=== PATIENT | female | born 1945 | race Caucasian/White ===

== ENCOUNTER 2025-07-25 22:47 | Emergency (ER) | payer MEDICARE, OTHER, SELFPAY ==
[2025-07-25 22:48] VITALS: BP 162/81; PULSE 84; RESP 14; TEMP 36.6; O2SAT 97
[2025-07-25 23:08] VITALS: BMI 29.7
--- NOTE | 2025-07-25 23:17 | CT_ITS ---
PROCEDURE: CT/Brain/Head without Contrast
--- NOTE | 2025-07-25 23:17 | CT_ITS ---
PROCEDURE: CT/CT Chest, Abd, Pel w/Contrast
[2025-07-26 00:03] LABS: Hematocrit 39.1 % (37-47); Hemoglobin 13.4 g/dL (12.0-15.0); Immature Granulocytes Count 0.100 X10^3/uL (0.0-0.0); Mean Corp Hgb Conc 34.3 g/dL (32-36); Mean Corpuscular Volume 90.7 fL (81-99); Mean Platelet Vol. 9.7 fl (6.2-12.0); NRBC Flagged by Analyzer 0 % (0-5); Platelet Count 185 K/mm3 (150-450); RBC Distribution Width CV 12.8 % (11.6-14.6); RBC Distribution Width SD 42.5 fl (35.1-43.9); Red Blood Count 4.31 M/mm3 (4.2-5.4); White Blood Count 6.5 K/mm3 (4.4-11.0)
[2025-07-26 00:05] LABS: AST(SGOT) 17 U/L (<=31); Alanine Aminotransfer ALT/SGPT 10 U/L (<=34); Albumin, Serum 3.7 g/dL (3.4-4.8); Alkaline Phosphatase 82 U/L (35-104); Anion Gap 8 (5-15); BUN 15 mg/dL (4-19); BUN/Creat Ratio 24.5 RATIO (10-20); Calcium,Total 9.2 mg/dL (7.6-11.0); Carbon Dioxide 26.2 mmol/L (21.0-32.0); Chloride 105 mmol/L (98-108); Estimated Creatinine Clearance 50.93 ml/min (50-250); Globulin 2.4 g/dL (2.2-4.2); Glucose 127 mg/dL (70-99); Potassium 3.4 mmol/L (3.3-5.1)
[2025-07-26 00:48] VITALS: BP 151/92; PULSE 74; RESP 18; O2SAT 95
[2025-07-26 01:06] LABS: Color, Urine Straw (Yellow); Glucose, Dipstick Normal (Normal); Ketone-Dipstick Negative (Negative); Leukocyte Esterase-Dipstick 25 /ul (Negative); Nitrite-Dipstick Negative (Negative); Occult Blood-Urine 10 /ul (Negative); Protein-Dipstick Negative (Negative); Specific Gravity, Urine 1.005 (1.002-1.030); Urine Bilirubin Dipstick Negative (Negative)
[2025-07-26 02:00] VITALS: BP 132/72; PULSE 74; RESP 16; O2SAT 97
--- NOTE | 2025-07-26 03:01 | ED.VIS.FALL ---
HPI HPI - Fall History of Present Illness Chief Complaint: Fall Narrative Narrative: Patient was seen and examined after presenting to ED for mechanical fall she was doing something with bedsheets ended up tripping over it landing directly on her left arm into her left rib cage adamant that she did not hit her head or lose consciousness she is not on anticoagulation just endorses some chest wall pain no shortness of breath no belly pain. PFSH PFSH Medical History Arthritis Lactose intolerance Osteoporosis Fibromyalgia Breast cancer Home Medications ?Medication ?Instructions ?Recorded ?Last Taken ?Type tramadol 50 mg tablet 50 mg PO Q8H PRN pain 3 days #10 07/26/25 Unknown Rx tabs Allergy/AdvReac Type Severity Reaction Status Date / Time adhesive tape (tape) Allergy Mild Rash Verified 07/25/25 22:49 codeine Allergy Mild HEADACHE Verified 07/25/25 22:49 gluten Allergy Mild Diarrhea Verified 07/25/25 22:49 lactose (lactose intolerant) Allergy Mild Diarrhea Verified 07/25/25 22:49 Family History no significant family his Surgical History Hx of total knee replacement Social History Smoking Status: Never smoker ROS ROS ED ROS Narrative Pertinent Positives: Mechanical fall left-sided chest wall pain Pertinent Negatives: Head injury loss of consciousness bleeding disorders use of anticoagulation shortness of breath numbness tingling vomiting The remainder of review of systems negative unless otherwise stated in the HPI above. Systems reviewed including constitutional, psychiatric, cardiovascular, respiratory, integument, HENT, gastrointestinal. EXAM Physical Exam Narrative Exam Narrative: Patient has an intact airway with bilateral breath sounds her blood pressure is appropriate as she has intact MSPs in her extremities with 2+ radials and DPs bilaterally. Her GCS is 15. She is appropriately exposed. Normocephalic atraumatic pupils equal round reactive to light EOMI. Midface is stable no dental malocclusion nontender cervical thoracic and lumbar spine without any step-off deformities abdomen is soft nontender nondistended pelvis is stable she is still able to move all of her extremities she does have tenderness overlying the left side of her chest wall on the lateral aspect of it Const Vital Signs: 07/25/25 22:48 07/25/25 23:08 07/26/25 00:48 Temperature 97.8 F Temperature Source Temporal Pulse Rate 84 74 Respiratory Rate 14 18 Respiratory Effort Normal Respiratory Depth Normal Respiratory Pattern Normal Blood Pressure 162/81 H 151/92 H Blood Pressure Mean 108 111 Pulse Ox 97 95 Oxygen Delivery Method Room Air Room Air Room Air 07/26/25 02:00 Temperature Temperature Source Pulse Rate 74 Respiratory Rate 16 Respiratory Effort Respiratory Depth Respiratory Pattern Blood Pressure 132/72 H Blood Pressure Mean 92 Pulse Ox 97 Oxygen Delivery Method Room Air MDM MDM MDM Narrative Medical decision making narrative: Nursing notes, triage notes, available previous documentation, and vital signs were reviewed. Any discrepancies noted were addressed. Differential Diagnoses: Higher suspicion for left-sided rib fractures low suspicion for pneumothorax low suspicion for intracranial injury Interventions: Tramadol Labs Reviewed: No leukocytosis leukopenia anemia electrolyte abnormality renal insufficiency transaminitis Imaging Reviewed: Personally reviewed and interpreted by me: CT head I did not see any obvious intracranial injury she does have multiple left-sided rib fractures on CT of the chest but no obvious pneumothorax official radiology interpretation reports left sided ribs 3 through 10 are fractured Previous Documentation Reviewed: None available or applicable at this time. ED Course: Patient presenting with history of osteoporosis here after mechanical fall she sustained multiple left-sided rib fractures however that being said this patient has been up and ambulatory throughout the emergency department on multiple visits she has been oxygenating really well has not been below 95%. I did discuss with on-call surgeon Dr Alonzo who is agreeable to discharge with incentive spirometer which we had already provided her here in the emergency department [place] we will provide her with a short course of her own home pain medication which is tramadol return precautions follow-up recommendations provided patient is stable for discharge home she prefers to leave anyways. This note was made utilizing voice recognition software. All attempts were made to correct spelling or other errors prior to note completion. However, due to the fast-paced nature of emergency medicine, some errors may still be present. Lab Data Labs: Laboratory Results - last 24 hr 07/25/25 07/26/25 23:32 01:01 WBC 6.5 RBC 4.31 Hgb 13.4 Hct 39.1 MCV 90.7 MCH 31.1 MCHC 34.3 RDW Std Deviation 42.5 RDW Coeff of [place] 12.8 Plt Count 185 MPV 9.7 Immature Gran % (Auto) 1.600 H Neut % (Auto) 72.2 H Lymph % (Auto) 16.1 L [place] % (Auto) 8.5 Eos % (Auto) 1.1 Baso % (Auto) 0.5 Absolute Neuts (auto) 4.7 Absolute Lymphs (auto) 1.04 Nucleated RBC % 0 Sodium 140 Potassium 3.4 Chloride 105 Carbon Dioxide 26.2 Anion Gap 8 BUN 15 Creatinine 0.61 L Estim Creat Clear Calc 50.93 Est GFR (MDRD) Non-Af 89 BUN/Creatinine Ratio 24.5 H Glucose 127 H Calcium 9.2 Total Bilirubin 0.31 AST 17 ALT 10 Alkaline Phosphatase 82 Total Protein 6.1 Albumin 3.7 Globulin 2.4 Albumin/Globulin Ratio 1.5 Urine Color Straw Urine Clarity Clear Urine pH 7.0 Ur Specific [place] 1.005 Urine Protein Negative Urine Glucose (UA) Normal Urine Ketones Negative Urine Occult Blood 10 H Urine Nitrite Negative Urine Bilirubin Negative Urine Urobilinogen Normal Ur Leukocyte Esterase 25 H Radiography Diagnostic Testing: Clinical Impression(s) from Imaging Studies Brain CT 07/25/25 23:17 IMPRESSION: No acute cerebrovascular abnormalities. If clinical symptoms persist, further evaluation with MRI may be considered as clinically warranted. No intra or extra-axial acute hemorrhage. Bilateral cerebral microvascular ischemic changes with brain involutional changes. Reading Location: [place] [address] Chest/Abdomen/Pelvis CT 07/25/25 23:17 IMPRESSION: Late subacute healing fracture of the anterior arch of the left 5th rib. Acute nondisplaced cortical fractures of the anterior arches of the 3rd, 4th and 6th ribs. Acute nondisplaced fractures in the axillary portions of the left 9th and 10th ribs. Partially deflated left breast prosthesis, chronic finding. Subsegmental atelectatic changes in the bases, more prominent in the lingula.Subsegmental atelectatic changes in the bases, more prominent in the lingula. Spinal stimulator device is noted. Left renal simple cyst measuring 1.5 cm. Calcified splenic granuloma measuring 6 mm. Moderate amount of fecal residue in the large bowels. Mild osteopenia. Moderate diffuse spondylosis. Grade 1 anterolisthesis of L4 on L5 measuring 3.7 mm. Small sliding hiatal hernia. Reading Location: [place] [address] Discharge Plan Triage Chief Complaint: Fall ED Provider: Jodie Escamilla Dx/Rx/DC Orders Clinical Impression: Fall from standing, Multiple fractures of ribs of left side, Chest wall pain Instructions: Rib Fracture (Broken Rib) Prescriptions: New tramadol 50 mg tablet 50 mg PO Q8H PRN (Reason: pain) 3 Days Qty: 10 0RF Primary Care Provider: DELGADO ULLOA Referrals: DELGADO ULLOA [Other] Activity Restrictions/Additional Instructions: Do not wrap your chest make sure you use that device called the incentive spirometer multiple times a day follow-up with your primary care doctor please return to the hospital if you are having worsening symptoms. Print Language: Maori Disposition Disposition: Home, Self Care
[2025-07-26 03:19] VITALS: BP 172/75; PULSE 72; RESP 16; TEMP 36.6; O2SAT 97
== END 2025-07-26 03:20 | disposition home or self-care (01) ==
PROVIDERS: Emergency Provider Specialist/Technologist Athletic Trainer; Visit Provider Specialist/Technologist Athletic Trainer
DX: S22.42XA Multiple fractures of ribs, left side, initial encounter for closed fracture (principal); R07.89 Other chest pain; W01.10XA Fall on same level from slipping, tripping and stumbling with subsequent striking against unspecified object, initial encounter; Y93.89 Activity, other specified; Z96.659 Presence of unspecified artificial knee joint
CPT/HCPCS: 70450; 71260; 74177; 80053; 81002; 85025; 94668; 99282; Q9967; A4216